=== PATIENT | female | born 1940 | race Caucasian/White ===

== ENCOUNTER 2016-12-21 19:56 | Emergency (ER) | payer MEDICARE, MEDICAID ==
[~2016-12-21] VITALS: Ht 167.6 cm; Wt 50.0 kg
[~2016-12-21 19:56] MED LIST: CYMB60CA PO; TRAZ100T50 PO
[2016-12-21 20:00] VITALS: BP 93/51; PULSE 73; RESP 20; TEMP 97.4; O2SAT 94
[2016-12-21] MEDS ORDERED: SODIUM CHLOR 0.9% 1000 ML INJ 1,000 ML IV SCH (20:02)
[2016-12-21 20:05] VITALS: O2SAT 97
--- NOTE | 2016-12-21 20:05 | PD ---
HPI Chief Complaint: Complaint Time Seen by Provider: 20:01 Travel History International Travel<30 days: No Contact w/Intl Traveler<30days: No Traveled to known affect area: No History of Present Illness HPI Patient is 76 years old and arrives from assisted living facility. There she rolled cheese sandwich which is very greasy. Shortly thereafter she developed diarrhea. A total of 10 episodes of nonbloody diarrhea observed. Nausea occurred however she did not vomit. She did have abdominal pain initially however none since resolved. Evidently she received an antidiarrheal medication on scene. She's had no fever. PFSH Past Medical History Arthritis: Yes Asthma: No Depression: Yes (Per pt.) Heart Rhythm Problems: No Cardiovascular Problems: Yes (Hx Periocarditis per pt.) Chest Pain: No Congestive Heart Failure: No COPD: Yes (Per pt.) Cerebrovascular Accident: Yes (Age 66 Per pt.) Diminished Hearing: No GERD: No Genitourinary: No Hiatal Hernia: No Musculoskeletal: Yes (Osteoperosis, RECENT RT HUMERUS FX) Neurologic: Yes (LEFT SIDE IS WEAKER DUE TO STROKE) Psychiatric: Yes Reproductive: No Respiratory: Yes Seizures: Yes (years ago) Sleep Apnea: No Ulcer: No ?: Not Menopausal: Yes : 3 Para: 3 Miscarriage: 0 : 0 Dilation and Curettage (D&C): Yes (20 yrs ago per pt) Past Surgical History Abdominal Surgery: Yes (APPENDECTOMY) Appendectomy: Yes Other Surgery: Yes (APPENDECTOMY) Social History Alcohol Use: Yes (2-3 days week (2-3 beers when she does)) Tobacco Use: Yes (Since age 35 - 12 cigs daily. ) Substance Use: No Allergies-Medications (Allergen,Severity, Reaction): Coded Allergies: Arava (Verified Allergy, Severe, FACE SWELLING, 12/21/16) Aspirin (Verified Allergy, Severe, FACE SWELLING, 12/21/16) Cipro (Verified Allergy, Unknown, 12/21/16) Penicillin (Verified Allergy, Unknown, 12/21/16) Per [facility] (Pharmacist) Quinolones (Verified Allergy, Unknown, 12/21/16) Per [facility] (Pharmacist) Reported Meds & Prescriptions Reported Meds & Active Scripts Active Lomotil (Diphenoxylate-Atropine) 2.5-0.025 Mg Tab 1 Tab PO Q6H PRN Reported Symbicort Inh (Budesonide/Formoterol Fumarate) 160-4.5 Mcg/Act Aero 2 Puff INH Q12HR Spiriva Handihaler (Tiotropium Inh) 18 Mcg Cap 18 Mcg INH DAILY 1 capsule = 18 mcg Tums (Calcium Carbonate (Antacid)) 500 Mg Chew 500 Mg CHEW PRN Simvastatin 20 Mg Tab 20 Mg PO DAILY Sertraline (Sertraline HCl) 100 Mg Tab 100 Mg PO DAILY Robafen (Guaifenesin) 100 Mg/5 Ml Syp 10 Ml PO Q4HR PRN Prednisone 5 Mg Tab 5 Mg PO DAILY Omeprazole 20 Mg Tab 20 Mg PO DAILY Meclizine (Meclizine HCl) 25 Mg Tab 25 Mg PO TID PRN Hydrocodone-Acetaminophen 7.5-325 mg Tab 1 Tab PO Q8HR PRN Mapap (Acetaminophen) 325 Mg Tab 325 Mg PO Q4-6H PRN Lisinopril 20 Mg Tab 20 Mg PO DAILY Allergy Nasal [place] 24 Ho (Fluticasone Propionate (Nasal)) 50 Mcg/Act Spr [address] Tab [address]AL HS Duloxetine DR (Duloxetine HCl) 60 Mg Capdr 60 Mg PO DAILY Cetirizine (Cetirizine HCl) 10 Mg Tab 10 Mg PO DAILY Bupropion HCl 75 Mg Tab 75 Mg PO BID Biofreeze Roll-On (Menthol (Topical Analgesic)) 4 % Gel 1 Applic TOPICAL DAILY PRN Alprazolam 0.25 Mg Tab 0.25 Mg PO Q8H PRN Alprazolam 0.25 Mg Tab 0.25 Mg PO HS Alprazolam 0.5 Mg Tab 0.5 Mg PO Q8H PRN Docusate Sodium 100 Mg Cap 100 Mg PO DAILY Aspirin 325 Mg Tab 325 Mg PO DAILY Review of Systems Except as stated in HPI: all other systems reviewed are Neg General / Constitutional: No: Fever Gastrointestinal: Positive: Nausea, Diarrhea, Abdominal Pain, No: Vomiting Physical Exam Narrative GENERAL: 76 yo F, WNWD, mild distress 2/2 anxiety and/or pain SKIN: Warm and dry. HEAD: Atraumatic. Normocephalic. EYES: Pupils equal and round. No scleral icterus. No injection or drainage. ENT: No nasal bleeding or discharge. Mucous membranes pink and moist. NECK: Trachea midline. No JVD. CARDIOVASCULAR: Regular rate and rhythm. RESPIRATORY: No accessory muscle use. Clear to auscultation. Breath sounds equal bilaterally. GASTROINTESTINAL: Minimal TTP LLQ. Soft. No tenderness at McBurney's point. Negative Patterson's sign. MUSCULOSKELETAL: Extremities without clubbing, cyanosis, or edema. No obvious deformities. NEUROLOGICAL: Awake and alert. No obvious cranial nerve deficits. Motor grossly within normal limits. Five out of 5 muscle strength in the arms and legs. Normal speech. PSYCHIATRIC: Appropriate mood and affect; insight and judgment normal. Data Data Last Documented VS Vital Signs Date Time Temp Pulse Resp B/P Pulse Ox O2 Delivery O2 Flow Rate FiO2 12/21/16 20:06 74 19 12/21/16 20:05 97 Room Air 12/21/16 20:00 97.4 93/51 Orders Complete Blood Count With Diff (12/21/16 20:02) Comprehensive Metabolic Panel (12/21/16 20:02) Lipase (12/21/16 20:02) Lactic Acid (12/21/16 20:02) Ct Abd/Pel W/O Iv Contrast (12/21/16 20:02) Iv Access Insert/Monitor (12/21/16 20:02) Ecg Monitoring (12/21/16 20:02) Oximetry (12/21/16 20:02) Ondansetron Inj (Zofran Inj) (12/21/16 20:15) Sodium Chlor 0.9% 1000 Ml Inj (Ns 1000 M (12/21/16 20:02) Sodium Chloride 0.9% Flush (Ns Flush) (12/21/16 20:15) Urinalysis - C+S If Indicated (12/21/16 20:05) ^ Straight Catheter (12/21/16 20:56) Labs Laboratory Tests Test 12/21/16 12/21/16 20:12 21:00 White Blood Count 10.2 TH/MM3 Red Blood Count 4.86 MIL/MM3 Hemoglobin 14.5 GM/DL Hematocrit 43.1 % Mean Corpuscular Volume 88.7 FL Mean Corpuscular Hemoglobin 29.7 PG Mean Corpuscular Hemoglobin 33.5 % Concent Red Cell Distribution Width 15.3 % Platelet Count 267 TH/MM3 Mean Platelet Volume 7.4 FL Neutrophils (%) (Auto) 72.4 % Lymphocytes (%) (Auto) 19.2 % Monocytes (%) (Auto) 6.6 % Eosinophils (%) (Auto) 0.8 % Basophils (%) (Auto) 1.0 % Neutrophils # (Auto) 7.3 TH/MM3 Lymphocytes # (Auto) 2.0 TH/MM3 Monocytes # (Auto) 0.7 TH/MM3 Eosinophils # (Auto) 0.1 TH/MM3 Basophils # (Auto) 0.1 TH/MM3 CBC Comment DIFF FINAL Differential Comment Sodium Level 134 MEQ/L Potassium Level 4.0 MEQ/L Chloride Level 100 MEQ/L Carbon Dioxide Level 26.3 MEQ/L Anion Gap 8 MEQ/L Blood Urea Nitrogen 19 MG/DL Creatinine 1.02 MG/DL Estimat Glomerular Filtration 53 ML/MIN Rate Random Glucose 109 MG/DL Lactic Acid Level 1.7 mmol/L Calcium Level 8.9 MG/DL Total Bilirubin 0.6 MG/DL Aspartate Amino Transf 26 U/L (AST/SGOT) Alanine Aminotransferase 20 U/L (ALT/SGPT) Alkaline Phosphatase 84 U/L Total Protein 7.0 GM/DL Albumin 3.6 GM/DL Lipase 109 U/L Urine Color YELLOW Urine Turbidity CLEAR Urine pH 7.0 Urine Specific Arjay 1.018 Urine Protein NEG mg/dL Urine Glucose (UA) NEG mg/dL Urine Ketones NEG mg/dL Urine Occult Blood NEG Urine Nitrite NEG Urine Bilirubin NEG Urine Urobilinogen 2.0 MG/DL Urine Leukocyte Esterase NEG Urine WBC LESS THAN 1 /hpf Urine Hyaline Casts 12 /lpf Microscopic Urinalysis Comment CULT NOT INDICATED MDM Medical Decision Making Medical Screen Exam Complete: Yes Emergency Medical Condition: Yes Medical Record Reviewed: Yes Differential Diagnosis Constipation, Gastritis, Acute Cholecystitis, Biliary Colic, Pancreatitis, BECERRIL , Hepatitis, Bowel Obstruction, Cystitis, Mesenteric Ischemia, AAA, Appendicitis , Renal Stone/Hydronephrosis, GERD, perforated viscous Narrative Course CBC & BMP Diagram 12/21/16 20:12 LA 1.7 LFTs normal Lipase normal UA no UTI Last 24 hours Impressions Abdomen/Pelvis CT 12/21/162001 Signed Impressions: Service Date/Time: Wednesday, December 21, 2016 20:24 - CONCLUSION: 1. Abnormal bowel gas pattern with multiple loops of borderline dilated air-containing small bowel with multiple air-fluid levels. Gas and stool are noted segmentally in the colon with air-fluid levels as well. No oral contrast was given limiting the sensitivity. Differential diagnosis includes an ileus. A bowel obstruction is less likely. 2. No free air or drainable fluid. João Calderon MD Pt has had multiple BMs prior to arrival. Patient has had bowel movements during ER stay. At this time, bowel obstruction is considered very unlikely. Diagnosis Primary Impression: Diarrhea Qualified Code: R19.7 - Diarrhea, unspecified type Referrals: DR PEREZ 2 days Additional Instructions: You have a choice when it comes to health care, and we are glad that you chose [facility]. Hopefully, we have met your expectations on today's visit. You are welcome to return to [facility] at any time, as we are committed to meeting the health care needs of our community. Med/Other Pt SpecificInfo: Prescription(s) given Scripts Diphenoxylate-Atropine (Lomotil)2.5-0.025 Mg Tab1 Tab PO Q6H PRN (DIARRHEA) #10 TAB Ref 0 Prov:Royer Rivera MD 12/21/16 Disposition: 01 DISCHARGE HOME Condition: Stable Royer Rivera MD Dec 21, 2016 20:05 Royer Rivera MD Dec 21, 2016 20:05
[2016-12-21] MEDS ORDERED: SODIUM CHLORIDE 0.9% FLUSH 5 ML FLUSH IVF PRN (20:15)
[2016-12-21] MEDS ORDERED: ONDANSETRON HCL 4 MG/2 ML VIAL IVP ONE (20:15)
[2016-12-21 20:33] LABS: AUTOMATED NEUTROPHIL # 7.3 TH/MM3 (1.8-7.7); BASOPHIL # 0.1 TH/MM3 (0-0.2); EOSINOPHIL # 0.1 TH/MM3 (0-0.4); EOSINOPHIL % 0.8 % (0.0-4.0); HEMATOCRIT 43.1 % (35.0-46.0); HEMO FLAGS DIFF FINAL; LYMPH % 19.2 % (9.0-44.0); MEAN CELL VOLUME 88.7 FL (80.0-100.0); MEAN CORPUSCULAR HEMOGLOBIN 29.7 PG (27.0-34.0); MEAN CORPUSCULAR HGB CONC 33.5 % (32.0-36.0); MONO % 6.6 % (0.0-8.0); NEUT % 72.4 % (16.0-70.0); PLATELET COUNT 267 TH/MM3 (150-450); RED BLOOD COUNT 4.86 MIL/MM3 (4.00-5.30); RED CELL DISTRIBUTION WIDTH 15.3 % (11.6-17.2); WHITE BLOOD COUNT 10.2 TH/MM3 (4.0-11.0)
--- NOTE | 2016-12-21 20:50 | RADRPT ---
EXAM DATE/TIME: 12/21/2016 20:24 [facility] COMPARISON: No previous studies available for comparison. INDICATIONS : Nausea, vomiting and diarrhea X 4 hours. ORAL CONTRAST: No oral contrast ingested. RADIATION DOSE: 9.96 CTDIvol (mGy) MEDICAL HISTORY : Chronic obstructive pulmonary disease. Cerebrovascular disease. Hypertension. SURGICAL HISTORY : Appendectomy. ENCOUNTER: Initial ACUITY: 1 day PAIN SCALE: 6/10 LOCATION: abdomen TECHNIQUE: Volumetric scanning of the abdomen and pelvis was performed. Using automated exposure control and ad justment of the mA and/or kV according to patient size, radiation dose was kept as low as reasonably achievable to obtain optimal diagnostic quality images. FINDINGS: LOWER LUNGS: The visualized lower lungs are clear. LIVER: Homogeneous density with a small cyst in the left lobe of the liver. The gallbladder appears unremark able. There is no dilation of the biliary tree. No calcified gallstones. SPLEEN: Normal size without lesion. PANCREAS: Within normal limits. KIDNEYS: Normal in size and shape. There is no mass, stone, or hydronephrosis. ADRENAL GLANDS: Within normal limits. VASCULAR: There is no aortic aneurysm. BOWEL/MESENTERY: There are multiple loops of borderline air-containing small bowel with multiple air-fluid levels. The re is fluid and air fluid levels in the colon as well. There is no free air or definite fluid collect ion. ABDOMINAL WALL: Within normal limits. RETROPERITONEUM: There is no lymphadenopathy. BLADDER: No wall thickening or mass. REPRODUCTIVE: Within normal limits. INGUINAL: There is no lymphadenopathy or hernia. MUSCULOSKELETAL: Within normal limits for patient age. CONCLUSION: 1. Abnormal bowel gas pattern with multiple loops of borderline dilated air-containing small bowel wi th multiple air-fluid levels. Gas and stool are noted segmentally in the colon with air-fluid levels as well. No oral contrast was given limiting the sensitivity. Differential diagnosis includes an ileu s. A bowel obstruction is less likely. 2. No free air or drainable fluid. João Calderon MD on December 21, 2016 at 20:46 Board Certified Radiologist. This report was verified electronically.
[2016-12-21 21:03] LABS: ALKALINE PHOSPHATASE 84 U/L (45-117); ALT (GPT) 20 U/L (10-53); ANION GAP 8 MEQ/L (5-15); AST (GOT) 26 U/L (15-37); BICARBONATE 26.3 MEQ/L (21.0-32.0); BLOOD UREA NITROGEN 19 MG/DL (7-18); CHLORIDE 100 MEQ/L (98-107); GLOMERULAR FILTRATION RATE 53 ML/MIN (>89); SODIUM (NA) 134 MEQ/L (136-145); TOTAL BILIRUBIN ADULT 0.6 MG/DL (0.2-1.0)
[2016-12-21] MEDS ORDERED: ALPR0.5T3 PO (21:19)
[2016-12-21] MEDS ORDERED: ROBA100S5 PO (21:19)
[2016-12-21] MEDS ORDERED: DOCU100C PO (21:19)
[2016-12-21] MEDS ORDERED: PRED5TAB PO (21:19)
[2016-12-21] MEDS ORDERED: ASPI325T PO (21:19)
[2016-12-21] MEDS ORDERED: MECL-62 PO (21:19)
[2016-12-21] MEDS ORDERED: MENT4GEL TOPICAL (21:19)
[2016-12-21] MEDS ORDERED: FLUT1SPR22 NASAL (21:19)
[2016-12-21] MEDS ORDERED: LISI-515 PO (21:19)
[2016-12-21] MEDS ORDERED: ALPR0.25 PO ×2 (21:19)
[2016-12-21] MEDS ORDERED: OMEP20TA PO (21:19)
[2016-12-21] MEDS ORDERED: DULO1CAP3 PO (21:19)
[2016-12-21] MEDS ORDERED: MAPA325T PO (21:19)
[2016-12-21] MEDS ORDERED: HYDR-3580 PO ×2 (21:19)
[2016-12-21] MEDS ORDERED: BUPR75TA PO (21:19)
[2016-12-21] MEDS ORDERED: CETI10 PO (21:19)
[2016-12-21] MEDS ORDERED: SERT-129 PO (21:21)
[2016-12-21] MEDS ORDERED: SPIRCAP INH (21:21)
[2016-12-21] MEDS ORDERED: SIMV20TA PO (21:21)
[2016-12-21] MEDS ORDERED: TUMS500C CHEW (21:21)
[2016-12-21] MEDS ORDERED: SYMB160A INH (21:22)
[2016-12-21 21:54] LABS: BLOOD, URINE NEG (NEG); COMMENT (UR) CULT NOT INDICATED; CULTURE IF INDICATED CULT NOT INDICATED; GLUCOSE,URINE NEG (NEG); HYALINE CAST, URINE 12 /lpf (RARE); KETONE, URINE NEG (NEG); NITRITE,URINE NEG (NEG); URINE COLOR YELLOW (YELLW/STRAW)
[2016-12-21] MEDS ORDERED: LOMO2.5T PO (22:13)
[2016-12-22 04:09] VITALS: BP 106/60; PULSE 76; RESP 16; O2SAT 96
== END 2016-12-22 09:43 | disposition home or self-care (01) ==
LOC: NEPC 19:56 → NEPA 12-22 09:43
DX: R19.7 Diarrhea, unspecified (principal); R10.9 Unspecified abdominal pain; F17.210 Nicotine dependence, cigarettes, uncomplicated
CPT/HCPCS: 74176; 80053; 81001; 83605; 83690; 85025; 96361; 96374; 99284; J2405; J7030; P9612

== ENCOUNTER 2017-05-16 11:56 | Inpatient (IN) | payer MEDICARE, OTHER ==
[~2017-05-16] VITALS: Ht 170.2 cm; Wt 52.3 kg
[~2017-05-16 11:56] MED LIST changes: +ALPR0.25 PO; +ALPR0.5T3 PO; +ASPI325T PO; +BUPR75TA PO; +CETI10 PO; -CYMB60CA PO; +DOCU100C PO; +DULO1CAP3 PO; +FLUT1SPR22 NASAL; +HYDR-3580 PO; +LISI-515 PO; +LOMO2.5T PO; +MAPA325T PO; +MECL-62 PO; +MENT4GEL TOPICAL; +OMEP20TA PO; +PRED5TAB PO; +ROBA100S5 PO; +SERT-129 PO; +SIMV20TA PO; +SPIRCAP INH; +SYMB160A INH; -TRAZ100T50 PO; +TUMS500C CHEW
[2017-05-16 12:03] VITALS: PULSE 80; RESP 20; TEMP 98.6; O2SAT 99
[2017-05-16 13:01] VITALS: BP 148/75; PULSE 74; RESP 18; TEMP 98.7; O2SAT 95
[2017-05-16 13:14] LABS: AUTOMATED NEUTROPHIL # 7.7 TH/MM3 (1.8-7.7); BASOPHIL % 0.4 % (0.0-2.0); EOSINOPHIL % 0.4 % (0.0-4.0); HEMO FLAGS DIFF FINAL; LYMPH % 9.2 % (9.0-44.0); LYMPHOCYTE # 0.8 TH/MM3 (1.0-4.8); MEAN CORPUSCULAR HEMOGLOBIN 28.2 PG (27.0-34.0); MEAN CORPUSCULAR HGB CONC 32.4 % (32.0-36.0); MONO % 4.2 % (0.0-8.0); NEUT % 85.8 % (16.0-70.0); PLATELET COUNT 240 TH/MM3 (150-450); RED BLOOD COUNT 4.83 MIL/MM3 (4.00-5.30); RED CELL DISTRIBUTION WIDTH 15.6 % (11.6-17.2)
[2017-05-16] MEDS ORDERED: DONE5TAB7 PO (13:18)
[2017-05-16] MEDS ORDERED: PRED1SUS RIGHT EYE (13:18)
[2017-05-16] MEDS ORDERED: ESCI20TA PO (13:18)
[2017-05-16] MEDS ORDERED: FLUT50SP EACH NARE (13:18)
[2017-05-16 13:36] LABS: ANION GAP 8 MEQ/L (5-15); AST (GOT) 10 U/L (15-37); BICARBONATE 25.9 MEQ/L (21.0-32.0); BLOOD UREA NITROGEN 11 MG/DL (7-18); CHLORIDE 96 MEQ/L (98-107); GLOMERULAR FILTRATION RATE 89 ML/MIN (>89); POTASSIUM 4.9 MEQ/L (3.5-5.1); SODIUM (NA) 130 MEQ/L (136-145)
[2017-05-16 13:37] LABS: ALT (GPT) 13 U/L (10-53)
[2017-05-16 13:39] LABS: ALKALINE PHOSPHATASE 71 U/L (45-117); TOTAL BILIRUBIN ADULT 0.5 MG/DL (0.2-1.0)
[2017-05-16] MEDS ORDERED: SODIUM CHLOR 0.9% 1000 ML INJ 1,000 ML IV SCH (13:45)
--- NOTE | 2017-05-16 14:09 | PD ---
HPI Chief Complaint: Psychiatric Symptoms Time Seen by Provider: 12:33 Travel History International Travel<30 days: No Contact w/Intl Traveler<30days: No Traveled to known affect area: No History of Present Illness HPI This is a 77-year-old female who has a history of depression who lives in assisted living and has been having increasing thoughts of hurting herself recently. She's been very depressed ever since she got eye surgery. She says she likes to read and she hasn't been able to read lately. She has been tired, has had no energy and has little interest in things. Her symptoms of been constant and severe. She has a long history of depression ever since she was a child and she's tried to harm herself many times. PFSH Past Medical History Anemia: Yes Arthritis: Yes Asthma: No Anxiety: Yes Depression: Yes Heart Rhythm Problems: No Cardiovascular Problems: Yes (Hx Periocarditis per pt.) Chest Pain: No Congestive Heart Failure: No COPD: Yes Cerebrovascular Accident: Yes Diabetes: No Diminished Hearing: No GERD: Yes Genitourinary: No Hiatal Hernia: No Hypertension: Yes (occ) Musculoskeletal: Yes (Osteoperosis, RECENT RT HUMERUS FX) Neurologic: Yes (LEFT SIDE IS WEAKER DUE TO STROKE) Psychiatric: Yes Reproductive: No Respiratory: Yes Seizures: Yes (years ago) Sleep Apnea: No Ulcer: No Tetanus Vaccination: > 5 Years Influenza Vaccination: Yes ?: Not Menopausal: Yes : 3 Para: 3 Miscarriage: 0 : 0 Dilation and Curettage (D&C): Yes (20 yrs ago per pt) Past Surgical History Abdominal Surgery: Yes (APPENDECTOMY) Appendectomy: Yes Other Surgery: Yes (APPENDECTOMY) Social History Alcohol Use: No Tobacco Use: Yes Substance Use: No Allergies-Medications (Allergen,Severity, Reaction): Coded Allergies: Arava (Verified Allergy, Severe, FACE SWELLING, 05/16/17) Aspirin (Verified Allergy, Severe, FACE SWELLING, 05/16/17) Cipro (Verified Allergy, Unknown, 05/16/17) Penicillin (Verified Allergy, Unknown, 05/16/17) Per [facility] (Pharmacist) Quinolones (Verified Allergy, Unknown, 05/16/17) Per [facility] (Pharmacist) Reported Meds & Prescriptions Reported Meds & Active Scripts Active Lomotil (Diphenoxylate-Atropine) 2.5-0.025 Mg Tab 1 Tab PO Q6H PRN Reported Pred Forte Opth 1% (Prednisolone Acetate Opth 1%) 1% Susp 1 Drop RIGHT EYE TID Fluticasone Nasal [place] 50 Mcg/Act Naspr 50 Mcg EACH NARE BID 50 mcg/spray Escitalopram (Escitalopram Oxalate) 20 Mg Tab 20 Mg PO DAILY Donepezil 5 Mg Tab 5 Mg PO DAILY Symbicort Inh (Budesonide/Formoterol Fumarate) 160-4.5 Mcg/Act Aero 2 Puff INH Q12HR Spiriva Handihaler (Tiotropium Inh) 18 Mcg Cap 18 Mcg INH DAILY 1 capsule = 18 mcg Tums (Calcium Carbonate (Antacid)) 500 Mg Chew 500 Mg CHEW PRN Simvastatin 20 Mg Tab 20 Mg PO DAILY Prednisone 5 Mg Tab 5 Mg PO DAILY Omeprazole 20 Mg Tab 20 Mg PO DAILY Meclizine (Meclizine HCl) 25 Mg Tab 25 Mg PO TID PRN Hydrocodone-Acetaminophen 7.5-325 mg Tab 1 Tab PO Q8HR PRN Mapap (Acetaminophen) 325 Mg Tab 325 Mg PO Q4-6H PRN Lisinopril 20 Mg Tab 20 Mg PO DAILY Duloxetine DR (Duloxetine HCl) 60 Mg Capdr 60 Mg PO DAILY Cetirizine (Cetirizine HCl) 10 Mg Tab 10 Mg PO DAILY Alprazolam 0.25 Mg Tab 0.25 Mg PO Q8H PRN Alprazolam 0.5 Mg Tab 0.5 Mg PO Q8H PRN Docusate Sodium 100 Mg Cap 100 Mg PO DAILY Aspirin 325 Mg Tab 325 Mg PO DAILY Review of Systems Except as stated in HPI: all other systems reviewed are Neg Physical Exam Narrative GENERAL:Well appearing, no acute distress SKIN: Focused skin assessment warm and dry. HEAD: Atraumatic. Normocephalic. EYES: Pupils equal and round. No injection or drainage. ENT: Moist mucous membranes NECK: Trachea midline. CARDIOVASCULAR: Regular rate and rhythm. No murmur appreciated. RESPIRATORY: Clear to auscultation. Breath sounds equal bilaterally. GASTROINTESTINAL: Abdomen soft, non-tender, nondistended. MUSCULOSKELETAL: No obvious deformities. NEUROLOGICAL: Awake and alert. No obvious cranial nerve deficits. Moving all extremities. PSYCHIATRIC: Slow to answer questions, poor eye contact, depressed mood, flat affect Data Data Last Documented VS Vital Signs Date Time Temp Pulse Resp B/P Pulse Ox O2 Delivery O2 Flow Rate FiO2 05/16/17 13:01 98.7 74 18 148/75 95 Room Air Orders Complete Blood Count With Diff (05/16/17 12:41) Comprehensive Metabolic Panel (05/16/17 12:41) ^ Insert Iv (05/16/17 12:41) Psych Screen (05/16/17 12:41) Drug Screen, Random Urine (05/16/17 12:41) Alcohol (Ethanol) (05/16/17 12:41) Urinalysis - C+S If Indicated (05/16/17 12:50) Sodium Chlor 0.9% 1000 Ml Inj (Ns 1000 M (05/16/17 13:45) Diet Heart Healthy (05/16/17 Dinner) Labs Laboratory Tests Test 05/16/17 12:55 White Blood Count 9.0 TH/MM3 Red Blood Count 4.83 MIL/MM3 Hemoglobin 13.6 GM/DL Hematocrit 42.0 % Mean Corpuscular Volume 87.0 FL Mean Corpuscular Hemoglobin 28.2 PG Mean Corpuscular Hemoglobin 32.4 % Concent Red Cell Distribution Width 15.6 % Platelet Count 240 TH/MM3 Mean Platelet Volume 6.9 FL Neutrophils (%) (Auto) 85.8 % Lymphocytes (%) (Auto) 9.2 % Monocytes (%) (Auto) 4.2 % Eosinophils (%) (Auto) 0.4 % Basophils (%) (Auto) 0.4 % Neutrophils # (Auto) 7.7 TH/MM3 Lymphocytes # (Auto) 0.8 TH/MM3 Monocytes # (Auto) 0.4 TH/MM3 Eosinophils # (Auto) 0.0 TH/MM3 Basophils # (Auto) 0.0 TH/MM3 CBC Comment DIFF FINAL Differential Comment Sodium Level 130 MEQ/L Potassium Level 4.9 MEQ/L Chloride Level 96 MEQ/L Carbon Dioxide Level 25.9 MEQ/L Anion Gap 8 MEQ/L Blood Urea Nitrogen 11 MG/DL Creatinine 0.65 MG/DL Estimat Glomerular Filtration 89 ML/MIN Rate Random Glucose 105 MG/DL Calcium Level 9.2 MG/DL Total Bilirubin 0.5 MG/DL Aspartate Amino Transf 10 U/L (AST/SGOT) Alanine Aminotransferase 13 U/L (ALT/SGPT) Alkaline Phosphatase 71 U/L Total Protein 6.9 GM/DL Albumin 3.7 GM/DL Ethyl Alcohol Level 3 MG/DL MDM Medical Decision Making Medical Screen Exam Complete: Yes Emergency Medical Condition: Yes Interpretation(s) Mild hyponatremia Differential Diagnosis Depression, adjustment reaction, psychosis Narrative Course This is a 77-year-old female who presents to the emergency department with depression. She has a long-standing history of depression. On exam she appears her depressed with poor eye contact, flat affect and she slowed answer questions. I think she'll likely require psychiatric admission. She was mildly hyponatremic on labs. She'll be given a liter of fluid. I think she is medically cleared for psychiatric admission. Enedina Hannon MD May 16, 2017 14:09
[2017-05-16] MEDS ORDERED: ALPRAZolam 0.5 MG TAB PO PRN (14:15)
[2017-05-16] MEDS ORDERED: ACETAMINOPHEN 325 MG TAB PO PRN (14:15)
[2017-05-16] MEDS ORDERED: LORazepam 2 MG/ML VIAL IM PRN ×2 (14:15)
[2017-05-16] MEDS ORDERED: MAGNESIUM HYDROXIDE SUSP 30 ML CUP PO PRN (14:15)
[2017-05-16] MEDS ORDERED: ALUMINUM/MAGNESIUM/SIMETH 30 ML CUP PO PRN (14:15)
[2017-05-16] MEDS ORDERED: LORazepam 1 MG TAB PO PRN (14:15)
[2017-05-16] MEDS ORDERED: LORazepam 0.5 MG TAB PO PRN (14:15)
[2017-05-16 14:28] LABS: BLOOD, URINE NEG (NEG); COMMENT (UR) CULT NOT INDICATED; CULTURE IF INDICATED CULT NOT INDICATED; GLUCOSE,URINE NEG (NEG); KETONE, URINE NEG (NEG); MUCUS URINE FEW /lpf (OCC); NITRITE,URINE NEG (NEG); PH, URINE 6.5 (5.0-8.5); SQUAMOUS EPITHELIAL CELL URINE <1 /hpf (0-5); URINE COLOR YELLOW (YELLW/STRAW)
[2017-05-16 14:31] LABS: AMPHETAMINE, URINE NEG (NEG); BARBITURATES, URINE NEG (NEG); COCAINE, URINE NEG (NEG)
--- NOTE | 2017-05-16 14:50 | HHI.HP ---
Provisional Diagnosis Admission Date May 16, 2017 at 14:10 [place] I. Major depressive episode, recurrent, severe Certification of Person's Competence To Provide Express and Informed Consent I have personally examined Natividad Duron , a person being served at [facility] on, May 16, 2017 14:41. Express and informed consent means consent voluntarily given in writing, by a competent person, after sufficient explanation and disclosure of the subject matter involved to enable the person to make a knowing and willful decision without any element of force, fraud, deceit, duress, or other form of constraint or coercion. This person is 18 years of age or older, is not now known to be incompetent to consent to treatment with a guardian advocate, and does not have a health care surrogate or proxy currently making medical treatment decisions. I have found this person to be one of the following: [X] Competent to provide express and informed consent, as defined above, for voluntary admission to this facility and is competent to provide express and informed consent for treatment. He/she has the consistent capacity to make well reasoned, willful, and knowing decisions concerning his or her medical or mental health treatment. The person fully and consistently understands the purpose of the admission for examination/placement and is fully capable of personally exercising all rights assured under [place] [] Incompetent to provide express and informed consent to voluntary admission, and this is incompetent to provide express and informed consent to treatment. The person must be transferred to involuntary status and a petition for a guardian advocate filed with the Circuit Court. [] Refusing to provide express and informed consent to voluntary admission but is competent to provide express and informed consent for treatment. The person must be discharged or transferred to involuntary status. Form shall be completed within 24 hours of a person's arrival at the receiving facility and filed in the clinical record of each person: 1. Admitted on a voluntary basis 2. Permitted to provide express and informed consent to his/her own treatment 3. Allowed to transfer from involuntary to voluntary status 4. Prior to permitting a person to consent to his or her own treatment after having been previously found incompetent to consent to treatment. History of Present Illness Capacity: Has Capacity HPI 77-year-old female Fu acted from assisted living facility for suicidal ideation. Patient interviewed and this physician spoke to the patient's nurse regarding her presentation. Records were reviewed as well. She has a long history of depressive episodes stemming from childhood. At this time she is markedly depressed with frequent if not constant thoughts of and suicide. She also demonstrates depressed mood, anhedonia, feelings of hopelessness and helplessness, decreased energy, impaired concentration, insomnia, anxiety, and low self-esteem. The only recent stressor she can explain to this physician is the eye surgery she had recently, which impairs her ability to read. Apparently she enjoyed reading and being unable to do so is more depressing to her. Finally, there is some possibility the patient has either early-onset dementia or pseudodementia. She is telling this physician that she has not been sad since yesterday but the patient's nurse checked the [facility]URSING HOME reports and finds that hard to believe. The patient does not use alcohol or drugs. She does have Physical medical problems. Review of Systems Except as stated in HPI: all other systems reviewed are Neg Past Psych History Psychological trauma history Patient states she has been depressed on and off since childhood. She is unable to list a psychological trauma. Violence risk - others (6 mos) Minimal Violence risk - self (6 mos) High. Apparently the patient has a history of previous suicide attempts. Substance Abuse History Drugs/Alcohol past 12 months Denied Past Family Social History Coded Allergies: Arava (Verified Allergy, Severe, FACE SWELLING, 05/16/17) Aspirin (Verified Allergy, Severe, FACE SWELLING, 05/16/17) Cipro (Verified Allergy, Unknown, 05/16/17) Penicillin (Verified Allergy, Unknown, 05/16/17) Per [facility] [place] (Pharmacist) Quinolones (Verified Allergy, Unknown, 05/16/17) Per [facility] [place] (Pharmacist) Active Scripts Diphenoxylate-Atropine (Lomotil)2.5-0.025 Mg Tab1 Tab PO Q6H PRN (DIARRHEA) #10 TAB Ref 0 Prov:Royer Rivera MD 12/21/16 Reported Medications Prednisolone Acetate Opth 1% (Pred Forte Opth 1%)1% Susp1 Drop RIGHT EYE TID # 1 BOTTLE Ref 0 05/16/17 Fluticasone Nasal Casey 50 Mcg/Act Naspr50 Mcg EACH NARE BID #1 BOTTLE Ref 0 50 mcg/spray 05/16/17 Escitalopram 20 Mg Tab20 Mg PO DAILY #30 TAB Ref 0 05/16/17 Donepezil 5 Mg Tab5 Mg PO DAILY #30 TAB Ref 0 05/16/17 Budesonide-Formoterol Inh (Symbicort Inh)160-4.5 Mcg/Act Aero2 Puff INH Q12HR # 1 INHALER Ref 0 12/21/16 Tiotropium Inh (Spiriva Handihaler)18 Mcg Cap18 Mcg INH DAILY #30 CAP Ref 0 1 capsule = 18 mcg 12/21/16 Calcium Carbonate (Antacid) (Tums)500 Mg [id number] Mg CHEW PRN (HEARTBURN) Ref 0 12/21/16 Simvastatin 20 Mg Tab20 Mg PO DAILY #30 TAB Ref 0 12/21/16 Prednisone 5 Mg Tab5 Mg PO DAILY Ref 0 12/21/16 Omeprazole 20 Mg Tab20 Mg PO DAILY #30 TAB Ref 0 12/21/16 Meclizine 25 Mg Tab25 Mg PO TID PRN (VERTIGO) Ref 0 12/21/16 Hydrocodone-Acetaminophen 7.5-325 mg Tab1 Tab PO Q8HR PRN (PAIN) #30 TAB Ref 0 12/21/16 Acetaminophen (Mapap)325 Mg [id number] Mg PO Q4-6H PRN (PAIN SCALE 1 TO 10) Ref 0 12/21/16 Lisinopril 20 Mg Tab20 Mg PO DAILY #30 TAB Ref 0 12/21/[address] 60 Mg Capdr60 Mg PO DAILY #30 CAP Ref 0 12/21/16 Cetirizine 10 Mg Tab10 Mg PO DAILY Ref 0 12/21/16 Alprazolam 0.25 Mg Tab0.25 Mg PO Q8H PRN (ANXIETY) Ref 0 12/21/16 Alprazolam 0.5 Mg Tab0.5 Mg PO Q8H PRN (ANXIETY) Ref 0 12/21/16 Docusate Sodium 100 Mg Wso754 Mg PO DAILY #60 CAP Ref 0 12/21/16 Aspirin 325 Mg Rrg471 Mg PO DAILY #30 TAB Ref 0 12/21/16 Discontinued Reported Medications Sertraline 100 Mg Nyt386 Mg PO DAILY #30 TAB Ref 0 12/21/16 Guaifenesin (Robafen)100 Mg/5 Ml Syp10 Ml PO Q4HR PRN (COUGH) 12/21/16 Bupropion HCl 75 Mg Tab75 Mg PO BID Ref 0 12/21/16 Alprazolam 0.25 Mg Tab0.25 Mg PO HS Ref 0 12/21/16 Current Medications Medications (Trade) Dose Ordered Sig/Adrienne Route Start Time Stop Time Status Last Admin (NS 1000 ml Inj) 1,000 ml @ 999 mls/hr Q1H1M IV 05/16/17 13:45 05/16/17 14:45 05/16/17 14:09 Family History Positive for mood disorder and anxiety disorders. Social History Patient is retired. She currently resides in an adult living facility. She denies a history of alcohol or drug abuse. She states she has very limited family support. Patient's Strengths (min. 2) Resilient and has access to healthcare. Physical Exam GENERAL: SKIN: Warm and dry. HEAD: Normocephalic. EYES: No scleral icterus. No injection or drainage. NECK: Supple, trachea midline. No JVD or lymphadenopathy. CARDIOVASCULAR: Regular rate and rhythm without murmurs, gallops, or rubs. RESPIRATORY: Breath sounds equal bilaterally. No accessory muscle use. GASTROINTESTINAL: Abdomen soft, non-tender, nondistended. MUSCULOSKELETAL: No cyanosis, or edema. BACK: Nontender without obvious deformity. No CVA tenderness. Vital Signs Vital Signs Date Time Temp Pulse Resp B/P Pulse Ox O2 Delivery O2 Flow Rate FiO2 05/16/17 13:01 98.7 74 18 148/75 95 Room Air Mental Status Examination Speech: Unremarkable Orientation: x3 Memory: Unremarkable Thought Process: Organized, Goal Directed Thought Content: Unremarkable Hallucination Type: None Attention and Concentration: Good Suicidal Ideation: Yes Previous Suicide Attempts: Yes Homicidal Ideation: No Previous Homicide Attempts: No Insight: Fair Judgment: Unrealistic Affect: Anxious, Sad Mood: Sad, Anxious Motor Activity: Normal gait Assessment & Plan Problem List: (1) Severe recurrent major depression without psychotic features ICD Code: F33.2 Assessment & Plan Estimated LOS: days 77-year-old female with multiple risk factors for depression and suicide. She has chronic recurrent major depressive episodes and is currently suicidal and unable to care for herself. This physician believes she is at high risk for self-harm due to her significant depressive symptoms, suicidal thinking and previous suicide attempts. She is therefore being admitted for evaluation and treatment. Patient has failed to antidepressants, including Cymbalta and Lexapro so these medicines were held. This physician did order a CBC and comprehensive metabolic panel to determine if any infectious process or metabolic process is causing or contributing to her depression. Likewise, we will obtain vitamin B-12 and vitamin D levels to ascertain if any of vitamin deficiency is causing or creating her depression. Furthermore, her thyroid stimulating hormone levels will be checked as hyper or hypothyroid can cause depression. She will receive an EKG to evaluate cardiac conduction and prevent problems resulting from psychotropic medication interference with cardiac conduction. Occupational therapy consult is being ordered to assess her functionality. Physical medicine consult is being ordered to evaluate her many non-psychotropic medicines for cardiac disease etc. As stated above, this physician spoke with the patient's nurse regarding her recent behavior and symptomatology. Case management will also be involved to obtain further collateral information and assist with disposition planning. Marcos Jaeger MD May 16, 2017 14:50
[2017-05-16 15:38] VITALS: BP 149/65; PULSE 73; RESP 18; O2SAT 96
[2017-05-16] MEDS: amLODIPine BESYLATE 5 MG TAB PO SCH (16:00)
[2017-05-16 17:35] VITALS: BP 143/70; PULSE 77; RESP 20; TEMP 97.9; O2SAT 89
[2017-05-16] MEDS ORDERED: RESP: ALBUTEROL 2.5 MG/IPRATROPIUM 0.5 MG NEB (PRN) NEB (17:45)
--- NOTE | 2017-05-16 17:56 | MB ---
cc: PAPITO HOFFMAN MD DATE OF CONSULTATION: 05/16/2017. REASON FOR CONSULTATION: Medical management. TRAVEL IN THE LAST THIRTY DAYS: None. HISTORY OF PRESENT ILLNESS: This is a pleasant 77-year-old white female who came into the hospital from an assisted living facility with suicidal thoughts and ideations. It was initially noted that the patient was a voluntary admission. She states that she has been depressed since she had some type of eye surgery, according to the record, because she loves to read and she has not been able to. It is also noted that the patient has had psychological depression and suicide attempts before. Her depression started as a young child. She is currently alert, oriented, flat affect, quiet but answers questions appropriately. She denies any chest pain. No shortness of breath. She is currently up with other patients sitting in the dietary room getting read to eat supper. She does state that she is hungry. No nausea. No vomiting. No diarrhea or constipation. The patient has noted some diarrhea in the recent past but does not give a lot of information concerning. PAST MEDICAL HISTORY: According to the record: 1. Anemia. 2. Arthritis. 3. Anxiety. 4. Depression. 5. Pericarditis. 6. History of CVA. 7. Major depression as a child. 8. Osteoporosis. 9. Recent right humerus fracture. 10. Psychological depression. 11. Seizures many years ago. 12. Hypertension. 13. COPD PAST SURGICAL HISTORY: 1. Appendectomy. ALLERGIES: 1. ARAVA. 2. ASPIRIN. 3. CIPRO. 4. PENICILLIN. 5. QUINOLONES. MEDICATIONS: 1. Prednisone eye drops. 2. Fluconazole. 3. Lexapro. 4. Donepezil. 5. Symbicort. 6. Spiriva. 7. Tums. 8. Simvastatin. 9. Prednisone. 10. Omeprazole. 11. Meclizine. 12. Pain management. 13. Acetaminophen. 14. Lisinopril. 15. Prozac. 16. Zyrtec. 17. Xanax. 18. Stool softeners. 19. Aspirin. SOCIAL HISTORY: The patient lives in an assisted living facility. She does smoke a half a pack to a pack a day, whatever she has that she can smoke that day. She does have a chronic cough. She denies any alcohol or any other illicit drug use. REVIEW OF SYSTEMS: Limited review of systems due to the patient's quiet and short answers. Except for her depression, systems are negative or unremarkable. PHYSICAL EXAMINATION: VITAL SIGNS: Temperature is 98.7, pulse 74, respirations 18, blood pressure 148/75, 02 sat 95% on room air. GENERAL: A small, borderline frail, elderly female looks to be her stated age sitting up in a chair. She is alert and appears oriented to where she is and very quiet affect. SKIN: [place], warm and dry. HEAD, EYES, EARS, NOSE, THROAT: Normocephalic and atraumatic. Pupils equal, round and reactive to light and accommodation. No mucous membrane discharge. [place] and moist. No scleral icterus. NECK: The neck is supple. CARDIOVASCULAR: S1 and S2. Regular rate and rhythm. No murmurs, rubs or gallops. LUNGS: Essentially clear anteriorly and posteriorly with no wheezes, rales or rhonchi. ABDOMEN: Soft, flat, nontender, nondistended. MUSCULOSKELETAL: She moves her extremities with purpose. She has no obvious deformities. She has no edema. Her extremities are warm. NEUROLOGIC: Flat affect but alert. Speech is clear and understandable but very soft. PSYCHIATRIC: Mood and affect are calm, quiet and appropriate. ASSESSMENT AND PLAN: 1. Severe major depression without psychotic features. 2. COPD with tobacco abuse. 3. Diarrhea, unspecified. 4. Hyponatremia. 5. Hypertension. PLAN: 1. Admit. 2. Her medications have been reconciled. 3. Drug screen was ordered on admission and it was positive for opiates and benzodiazepines, which she usually takes on an ongoing basis. Will reconcile her other medications, which will include blood pressure medications and her COPD medications. 4. The patient's activity will be out of bed ad mac. 5. Will monitor her for safety while being up. 6. DVT prophylaxis with SCDs. 7. PTI prophylaxis with Pepcid. 8. Will give the patient DuoNeb as needed. This was explained to her that if she gets short of breath and needs a treatment, all she has to do is ask for it. To my knowledge, she is FULL CODE, FULL AGGRESSIVE CARE. We will follow with her medical needs. Thank you very much for the consultation. Dictated by PATTI Mireles. MD CLYDE Hooper/EDWINA /5:27 PM /5:37 PM Above reviewed by myself, Dr Hoffman, today Discussed with emergency physician Discussed with mid level provider Thank you for this consultation We'll follow this patient along with you on an as-needed basis MTDD
[2017-05-16] MEDS: prednisoLONE ACETATE 1% OPHT SUSP 5 ML BTL RIGHT EYE SCH (19:59)
[2017-05-16] MEDS: BUDESONIDE-FORMOTEROL 160/4.5 MCG INHALER INH SCH (19:59)
[2017-05-16] MEDS: FAMOTIDINE 20 MG TAB PO SCH ×2 (20:00→20:10)
[2017-05-16] MEDS ORDERED: LORazepam 1 MG TAB PO ONE (23:30)
[2017-05-17 06:02] VITALS: BP 128/64; PULSE 72; RESP 16; TEMP 98.4; O2SAT 97
[2017-05-17 07:00] VITALS: BP 162/83; PULSE 76; RESP 18; TEMP 98.1; O2SAT 95
[2017-05-17 08:00] VITALS: BP 142/70; PULSE 79; RESP 16; TEMP 97.3; O2SAT 98
[2017-05-17] MEDS ORDERED: ASPIRIN 325 MG TAB PO SCH (09:00)
[2017-05-17] MEDS: BUDESONIDE-FORMOTEROL 160/4.5 MCG INHALER INH SCH ×2 (09:00→21:38)
[2017-05-17] MEDS: TIOTROPIUM BROMIDE 18 MCG INH INH SCH (09:00)
[2017-05-17] MEDS: prednisoLONE ACETATE 1% OPHT SUSP 5 ML BTL RIGHT EYE SCH ×3 (09:00→17:06)
--- NOTE | 2017-05-17 09:10 | RADRPT ---
EXAM DATE/TIME: 05/17/2017 07:54 [facility] COMPARISON: No previous studies available for comparison. INDICATIONS : Left distal forearm pain due to a fall. MEDICAL HISTORY : Hypertension. SURGICAL HISTORY : None. ENCOUNTER: Initial ACUITY: 1 day PAIN SCORE: 9/10 LOCATION: Left upper extremity FINDINGS: Multiple view examination of the left elbow demonstrates no soft tissue swelling, joint effusion, or fracture. The osseous structures are in normal alignment. Bony mineralization is normal. CONCLUSION: Unremarkable examination of the left elbow. Dexter Holm MD on May 17, 2017 at 9:08 Board Certified Radiologist. This report was verified electronically.
--- NOTE | 2017-05-17 09:10 | RADRPT ---
EXAM DATE/TIME: 05/17/2017 07:49 [facility] COMPARISON: No previous studies available for comparison. INDICATIONS : Left distal forearm pain due to a fall. MEDICAL HISTORY : Hypertension. SURGICAL HISTORY : None. ENCOUNTER: Initial ACUITY: 1 day PAIN SCORE: 9/10 LOCATION: Left upper extremity FINDINGS: There are mild arthritic changes in the wrist. There is slight ulna minus variance. There is no evide nce of fracture or dislocation. CONCLUSION: No acute bony injury Dexter Holm MD on May 17, 2017 at 9:00 Board Certified Radiologist. This report was verified electronically.
[2017-05-17] MEDS: DOCUSATE SODIUM 100 MG CAP PO SCH (09:36)
[2017-05-17] MEDS: LISINOPRIL 20 MG TAB PO SCH (09:36)
[2017-05-17] MEDS: PANTOPRAZOLE SOD 20 MG DELAYED RELEASE TAB PO SCH (09:36)
[2017-05-17] MEDS: PRAVASTATIN SOD 40 MG TAB PO SCH (09:36)
[2017-05-17] MEDS: predniSONE 5 MG TAB PO SCH (09:36)
[2017-05-17] MEDS: ACETAMINOPHEN/HYDROcodone 325 MG/7.5 MG TAB PO PRN ×2 (09:36→17:35)
[2017-05-17] MEDS: amLODIPine BESYLATE 5 MG TAB PO SCH (09:36)
[2017-05-17] MEDS: CETIRIZINE HCL 10 MG TAB PO SCH (09:36)
--- NOTE | 2017-05-17 09:55 | HHI.PYPN ---
Subjective Remarks Patient seen and examined. Chart reviewed. Case discussed with nursing staff. I was notified ~07:15 this morning that patient had fallen on left arm with focus of discomfort at left elbow and wrist. Patient was already on fall precautions at the time. I obtained stat x-rays of wrist and elbow, negative for fracture. On my evaluation this morning, patient now complains of left hand pain, and I do note ecchymosis and swelling along the dorsum of the left hand. I have ordered stat imaging of the hand, and this does reveal fracture, see findings and plan below. Psychitarically, patient reports much of the same information she provided to Dr. Jaeger. She reports feeling depressed since recent eye surgery. She is somewhat ambivalent about SI at this time. Denies AVH or psychotic symptoms otherwise. No HI. Denies side effects from current psychotropics, and reviewing her MAR from facility I do see that she is on Lexapro 20mg and Cymbalta 120mg daily. I also note a DNR order on the chart signed by Dr. Rosales. Besides hand pain, no other acute physical complaints. Review of Systems Except as stated in HPI: all other systems reviewed are Neg Objective Alert: Yes Viola: Person, Place, Date, Situation Mood: Anxious, Depressed Affect: Restricted Memory Intact: Comment (Intact on clinical exam) Hallucinations: Other (No AVH) Delusions: No Delusion Type: Other (No delusions) Suicidal: Ideation (Somewhat ambivalent re: SI) Homicidal: Ideation (No HI) Insight/Judgment Fair Remarks No motor abnormalities noted. Thought process linear. Grooming and hygiene fair. Speech within normal limits for rate, tone and volume. Labs Test 05/16/17 05/16/17 12:55 14:00 White Blood Count 9.0 TH/MM3 Red Blood Count 4.83 MIL/MM3 Hemoglobin 13.6 GM/DL Hematocrit 42.0 % Mean Corpuscular Volume 87.0 FL Mean Corpuscular Hemoglobin 28.2 PG Mean Corpuscular Hemoglobin 32.4 % Concent Red Cell Distribution Width 15.6 % Platelet Count 240 TH/MM3 Mean Platelet Volume 6.9 FL Neutrophils (%) (Auto) 85.8 % Lymphocytes (%) (Auto) 9.2 % Monocytes (%) (Auto) 4.2 % Eosinophils (%) (Auto) 0.4 % Basophils (%) (Auto) 0.4 % Neutrophils # (Auto) 7.7 TH/MM3 Lymphocytes # (Auto) 0.8 TH/MM3 Monocytes # (Auto) 0.4 TH/MM3 Eosinophils # (Auto) 0.0 TH/MM3 Basophils # (Auto) 0.0 TH/MM3 CBC Comment DIFF FINAL Differential Comment Sodium Level 130 MEQ/L Potassium Level 4.9 MEQ/L Chloride Level 96 MEQ/L Carbon Dioxide Level 25.9 MEQ/L Anion Gap 8 MEQ/L Blood Urea Nitrogen 11 MG/DL Creatinine 0.65 MG/DL Estimat Glomerular Filtration 89 ML/MIN Rate Random Glucose 105 MG/DL Calcium Level 9.2 MG/DL Total Bilirubin 0.5 MG/DL Aspartate Amino Transf 10 U/L (AST/SGOT) Alanine Aminotransferase 13 U/L (ALT/SGPT) Alkaline Phosphatase 71 U/L Total Protein 6.9 GM/DL Albumin 3.7 GM/DL Ethyl Alcohol Level 3 MG/DL Urine Color YELLOW Urine Turbidity CLEAR Urine pH 6.5 Urine Specific [place] 1.015 Urine Protein NEG mg/dL Urine Glucose (UA) NEG mg/dL Urine Ketones NEG mg/dL Urine Occult Blood NEG Urine Nitrite NEG Urine Bilirubin NEG Urine Urobilinogen 2.0 MG/DL Urine Leukocyte Esterase NEG Urine RBC 4 /hpf Urine WBC LESS THAN 1 /hpf Urine Squamous Epithelial <1 /hpf Cells Urine Mucus FEW /lpf Microscopic Urinalysis Comment CULT NOT INDICATED Urine Opiates Screen POS Urine Barbiturates Screen NEG Urine Amphetamines Screen NEG Urine Benzodiazepines Screen POS Urine Cocaine Screen NEG Urine Cannabinoids Screen NEG Labs reviewed. Last Impressions Wrist X-Ray 05/17/17 0000 Signed Impressions: Service Date/Time: Wednesday, May 17, 2017 07:49 - CONCLUSION: No acute bony injury Dexter Holm MD Hand X-Ray 05/17/17 0000 Signed Impressions: Service Date/Time: Wednesday, May 17, 2017 10:46 - CONCLUSION: Nondisplaced fractures of the proximal third fourth and fifth metacarpals with associated soft tissue swelling. Possible nondisplaced fracture of the navicular carpal bone. Jose A iLn MD Elbow X-Ray 05/17/17 0000 Signed Impressions: Service Date/Time: Wednesday, May 17, 2017 07:54 - CONCLUSION: Unremarkable examination of the left elbow. Dexter Holm MD Vitals/IOs Vital Signs Date Time Temp Pulse Resp B/P Pulse Ox O2 Delivery O2 Flow Rate FiO2 05/17/17 06:02 98.4 72 16 128/64 97 05/16/17 15:38 Room Air Assessment & Plan Problem List: (1) Severe recurrent major depression without psychotic features ICD Code: F33.2 (2) Fracture, metacarpal ICD Code: S62.309A Assessment & Plan Consult to hand surgery for metacarpal fracture. Splint left hand. 1:1 given fall risk. Fall precautions remain in place. Although somewhat unconventional , I will continue Lexapro/Cymbalta combination as ordered as patient reports that this has been a good regimen in the past, except that I will split the Cymbalta dose into two daily doses to try to lessen the quantity of psychotropics provided at any one time given the fall risk. I will augment current depression regimen with Abilify 2mg daily. I will lessen her dose of PRN benzodiazepine given the fall risk; I will not discontinue it entirely because she does remain fairly anxious. I will also not adjust opiate dosing because of acute pain issues, although this is something we might consider tapering in future. Hospitalist input noted and appreciated. Labs ordered by Dr. Jaeger presently pending, follow up. DNR order entered from chart. Continue to monitor on geropsychiatric unit. Continue other medications and care as ordered. Justification for Cont. Inpt. Monitoring for impairment and safety. Medication changes. High risk for decompensation in less restrictive environment. Discharge Planning Pending psychiatric stabilization. Request HC Surrog/Guard Advoc?: No Problem Qualifiers (1) Fracture, metacarpal: Qualified Code: S62.309A - Closed fracture of metacarpal bone, unspecified fracture morphology, unspecified metacarpal, unspecified portion of metacarpal, initial encounter Phill Olivo MD May 17, 2017 09:55
[2017-05-17] MEDS ORDERED: PNEUMOCOCCAL POLYVALENT INJ 25 MCG/0.5 ML SYR IM ONE (10:00)
--- NOTE | 2017-05-17 11:03 | RADRPT ---
EXAM DATE/TIME: 05/17/2017 10:46 [facility] COMPARISON: No previous studies available for comparison. INDICATIONS : Pain from fall. MEDICAL HISTORY : None. SURGICAL HISTORY : None. ENCOUNTER: Initial ACUITY: 1 day PAIN SCORE: 5/10 LOCATION: Left medioproximal hand. FINDINGS: Three view examination of the left hand demonstrates nondisplaced fractures involving the proximal th ird fourth and fifth metacarpals. There is no subluxation. Adjacent soft tissue swelling is noted. Her last fracture may be present across the navicular carpal bone. CONCLUSION: Nondisplaced fractures of the proximal third fourth and fifth metacarpals with associated soft tissue swelling. Possible nondisplaced fracture of the navicular carpal bone. Jose A Lin MD on May 17, 2017 at 11:00 Board Certified Radiologist. This report was verified electronically.
[2017-05-17] MEDS ORDERED: PILL SPLITTER OTHER PRN (12:45)
[2017-05-17] MEDS ORDERED: LORazepam 2 MG/ML VIAL IM PRN (14:15)
--- NOTE | 2017-05-17 14:50 | PD.CONS ---
History of Present Illness Service Hand Surgery Consult Requested By Phill Olivo MD Primary Care Physician Blane Edmonds M.D. Diagnoses: History of Present Illness This is a 77 year old female who has been admitted to the adult psychiatry unit for treatment of major depression. The patient states that she fell this morning. She is unsure what caused the fall. She thinks that she fell onto her outstretched left hand. Currently, the patient complains of pain in the left hand. The RN is present for discussion and evaluation. Review of Systems Except as stated in HPI: all other systems reviewed are Neg Past Family Social History Allergies: Coded Allergies: Arava (Verified Allergy, Severe, FACE SWELLING, 05/16/17) Aspirin (Verified Allergy, Severe, FACE SWELLING, 05/16/17) Cipro (Verified Allergy, Unknown, 05/16/17) Penicillin (Verified Allergy, Unknown, 05/16/17) Per [facility] [place] (Pharmacist) Quinolones (Verified Allergy, Unknown, 05/16/17) Per [facility] [place] (Pharmacist) Past Medical History Anemia, arthritis, anxiety, depression, pericarditis, CVA, major depression, osteoporosis, right humerus fracture, seizures, hypertension, COPD Past Surgical History Recent cataract surgery, appendectomy Active Ordered Medications Current Medications Medications (Trade) Dose Ordered Sig/Adrienne Route Start Time Stop Time Status Last Admin (Tylenol) 650 mg Q4H PRN PO 05/16/17 14:15 (Milk Of Magnesia Liq) 30 ml DAILY PRN PO 05/16/17 14:15 (Mag-Al Plus Susp Liq) 30 ml Q6H PRN PO 05/16/17 14:15 (Symbicort 160-4.5 Inh) 2 puff Q12HR INH 05/16/17 21:00 05/16/17 19:59 (ZyrTEC) 10 mg DAILY PO 05/17/17 09:00 05/17/17 09:36 (Colace) 100 mg DAILY PO 05/17/17 09:00 05/17/17 09:36 (Hana 7.5-325 Mg) 1 tab Q8HR PRN PO 05/16/17 14:15 05/17/17 09:36 (Prinivil) 20 mg DAILY PO 05/17/17 09:00 05/17/17 09:36 (Pred Forte 1% Opth Susp) 1 drop TID RIGHT EYE 05/16/17 18:00 05/17/17 13:00 (Deltasone) 5 mg DAILY PO 05/17/17 09:00 05/17/17 09:36 (Spiriva Inh) 18 mcg DAILY INH 05/17/17 09:00 (Protonix) 20 mg DAILY PO 05/17/17 09:00 05/17/17 09:36 (Pravachol) 40 mg DAILY PO 05/17/17 09:00 05/17/17 09:36 (Norvasc) 2.5 mg DAILY PO 05/16/17 16:00 05/17/17 09:36 (Cymbalta Dr) 60 mg BID PO 05/17/17 21:00 (Abilify) 2 mg DAILY PO 05/18/17 09:00 (Lexapro) 20 mg DAILY PO 05/18/17 09:00 (Ativan) 0.25 mg Q12H PRN PO 05/17/17 14:15 (Ativan Inj) 0.25 mg Q12H PRN IM 05/17/17 14:15 (Pill Splitter) 1 ea UNSCH PRN OTHER 05/17/17 12:45 Social History Lives in assisted living. Smokes 1/2 ppd. Denies alcohol or illicit drug abuse. Physical Exam Vital Signs Vital Signs Date Time Temp Pulse Resp B/P Pulse Ox O2 Delivery O2 Flow Rate FiO2 05/17/17 08:00 97.3 79 16 142/70 98 05/17/17 07:00 98.1 76 18 162/83 95 05/17/17 06:02 98.4 72 16 128/64 97 05/16/17 17:35 97.9 77 20 143/70 89 05/16/17 15:38 73 18 149/65 96 Room Air Physical Exam GENERAL: This is a well-nourished, well-developed patient, in no apparent distress. SKIN: No rashes, ecchymoses or lesions. HEAD: Atraumatic. Normocephalic. EYES: Pupils equal round and reactive. Extraocular motions intact. No scleral icterus. No injection or drainage. ENT: Nose without bleeding, purulent drainage. Airway patent. NECK: Trachea midline. MUSCULOSKELETAL: On exam of the left hand, there is swelling and ecchymosis to the dorsum of the hand. Very tender to any palpation. Patient is able to move fingers, range of motion limited due to pain. NEUROLOGICAL: Awake and alert. Normal speech. Result Diagram: 05/16/17 1255 05/16/17 1255 Imaging Last Impressions Wrist X-Ray 05/17/17 0000 Signed Impressions: Service Date/Time: Wednesday, May 17, 2017 07:49 - CONCLUSION: No acute bony injury Dexter Holm MD Hand X-Ray 05/17/17 0000 Signed Impressions: Service Date/Time: Wednesday, May 17, 2017 10:46 - CONCLUSION: Nondisplaced fractures of the proximal third fourth and fifth metacarpals with associated soft tissue swelling. Possible nondisplaced fracture of the navicular carpal bone. Jose A Lin MD Elbow X-Ray 05/17/17 0000 Signed Impressions: Service Date/Time: Wednesday, May 17, 2017 07:54 - CONCLUSION: Unremarkable examination of the left elbow. Dexter Holm MD Assessment and Plan Problem List: (1) Closed nondisplaced fracture of base of third metacarpal bone of left hand Status: Acute (2) Fracture of scaphoid of left wrist Status: Acute (3) Closed nondisplaced fracture of base of fifth metacarpal bone of left hand Status: Acute Assessment and Plan X-rays are reviewed. There are fractures to the bases of the third and fifth metacarpals of the left hand. There is also a possible fracture to the carpal scaphoid. The recommendation is for splint immobilization of the left hand. We may consider a cast once some of the swelling has subsided. Splinting is ordered. The patient indicated that she understood and indicated that she would comply with splinting. Also discussed with RN to monitor the tightness of the Wiley wrap on the splint and keep hand elevated. We discussed the possible addition of ibuprofen to help with pain control, the RN will discuss with attending, who is already prescribing lortab. Discussed Condition With RN Dr. Wolf Problem Qualifiers (1) Closed nondisplaced fracture of base of third metacarpal bone of left hand: Qualified Code: S62.343A - Closed nondisplaced fracture of base of third metacarpal bone of left hand, initial encounter (2) Fracture of scaphoid of left wrist: Qualified Code: S62.025A - Closed nondisplaced fracture of middle third of scaphoid bone of left wrist, initial encounter (3) Closed nondisplaced fracture of base of fifth metacarpal bone of left hand: Qualified Code: S62.347A - Closed nondisplaced fracture of base of fifth metacarpal bone of left hand, initial encounter Mere Ramirez May 17, 2017 14:50
--- NOTE | 2017-05-17 15:12 | EKG ---
Date Performed: 05/16/2017 Time Performed: 15:32:18 PTAGE: 77 years EKG: Sinus rhythm Diffuse nonspecific ST-T wave change ABNORMAL ECG NO PREVIOUS TRACING DOCTOR: Marcos Zuniga Interpretating Date/Time 05/17/2017 15:12:22
[2017-05-17] MEDS: LORazepam 0.5 MG TAB PO PRN (15:57)
[2017-05-17] MEDS: IBUPROFEN 600 MG TAB PO PRN (16:07)
[2017-05-17 16:22] VITALS: BP 139/71; PULSE 83; RESP 18; TEMP 97.8; O2SAT 95
[2017-05-17] MEDS: DULoxetine HCl DR 60 MG CAP PO SCH (21:38)
[2017-05-18] MEDS: ACETAMINOPHEN/HYDROcodone 325 MG/7.5 MG TAB PO PRN ×3 (02:11→20:17)
[2017-05-18 06:00] VITALS: BP 147/79; PULSE 81; RESP 17; TEMP 97.9; O2SAT 92
[2017-05-18] MEDS: IBUPROFEN 600 MG TAB PO PRN ×2 (06:17→15:30)
[2017-05-18] MEDS: TIOTROPIUM BROMIDE 18 MCG INH INH SCH (09:00)
[2017-05-18] MEDS: prednisoLONE ACETATE 1% OPHT SUSP 5 ML BTL RIGHT EYE SCH ×3 (09:00→18:00)
[2017-05-18] MEDS: BUDESONIDE-FORMOTEROL 160/4.5 MCG INHALER INH SCH ×2 (09:24→20:16)
[2017-05-18 09:26] LABS: AUTOMATED NEUTROPHIL # 4.8 TH/MM3 (1.8-7.7); BASOPHIL # 0.1 TH/MM3 (0-0.2); BASOPHIL % 0.7 % (0.0-2.0); EOSINOPHIL # 0.1 TH/MM3 (0-0.4); EOSINOPHIL % 1.4 % (0.0-4.0); HEMATOCRIT 43.9 % (35.0-46.0); HEMO FLAGS DIFF FINAL; LYMPH % 26.8 % (9.0-44.0); MEAN CELL VOLUME 87.2 FL (80.0-100.0); MEAN CORPUSCULAR HEMOGLOBIN 28.1 PG (27.0-34.0); MEAN CORPUSCULAR HGB CONC 32.2 % (32.0-36.0); MONO % 5.9 % (0.0-8.0); NEUT % 65.2 % (16.0-70.0); PLATELET COUNT 258 TH/MM3 (150-450); RED BLOOD COUNT 5.04 MIL/MM3 (4.00-5.30); RED CELL DISTRIBUTION WIDTH 15.7 % (11.6-17.2); WHITE BLOOD COUNT 7.4 TH/MM3 (4.0-11.0)
[2017-05-18] MEDS: PRAVASTATIN SOD 40 MG TAB PO SCH (09:27)
[2017-05-18] MEDS: DULoxetine HCl DR 60 MG CAP PO SCH ×2 (09:27→20:16)
[2017-05-18] MEDS: PANTOPRAZOLE SOD 20 MG DELAYED RELEASE TAB PO SCH (09:27)
[2017-05-18] MEDS: ARIPiprazole 2 MG TAB PO SCH (09:27)
[2017-05-18] MEDS: ESCITALOPRAM OXALATE 20 MG TAB PO SCH (09:27)
[2017-05-18] MEDS: DOCUSATE SODIUM 100 MG CAP PO SCH (09:28)
[2017-05-18] MEDS: predniSONE 5 MG TAB PO SCH (09:28)
[2017-05-18] MEDS: amLODIPine BESYLATE 5 MG TAB PO SCH (09:28)
[2017-05-18] MEDS: LISINOPRIL 20 MG TAB PO SCH (09:28)
[2017-05-18] MEDS: CETIRIZINE HCL 10 MG TAB PO SCH (09:28)
[2017-05-18 09:43] LABS: ANION GAP 10 MEQ/L (5-15); AST (GOT) 17 U/L (15-37); BICARBONATE 27.1 MEQ/L (21.0-32.0); BLOOD UREA NITROGEN 8 MG/DL (7-18); CHLORIDE 93 MEQ/L (98-107); GLOMERULAR FILTRATION RATE 84 ML/MIN (>89); POTASSIUM 3.8 MEQ/L (3.5-5.1); SODIUM (NA) 130 MEQ/L (136-145)
[2017-05-18 09:46] LABS: ALT (GPT) 14 U/L (10-53)
[2017-05-18 10:20] LABS: ALKALINE PHOSPHATASE 78 U/L (45-117); HDL CHOLESTEROL 110.4 MG/DL (40.0-60.0); LDL CHOLESTEROL 54 MG/DL (0-99); TOTAL BILIRUBIN ADULT 0.6 MG/DL (0.2-1.0)
--- NOTE | 2017-05-18 17:21 | EKG ---
Date Performed: 05/17/2017 Time Performed: 13:11:06 PTAGE: 77 years EKG: Sinus rhythm ST DEVIATION AND MODERATE T-WAVE ABNORMALITY, CONSIDER ANTEROLATERAL ISCHEMIA ABNORMAL ECG Compared to prior tracing no significant change PREVIOUS TRACING : 05/16/2017 15.32 DOCTOR: Madhu Mesa Interpretating Date/Time 05/18/2017 17:18:38
--- NOTE | 2017-05-18 20:09 | HHI.PYPN ---
Subjective Remarks Pt seen and discussed with staff. Pt reports that she remains depressed and anxious. She denies SI/HI today. She has been cooperative and compliant with treatment. No agitation. Pain from fracture is well controlled Objective Alert: Yes Secretary: Person, Place, Date, Situation Mood: Anxious, Depressed Affect: Restricted Memory Intact: Comment (intact) Hallucinations: Other (No AVH) Delusions: No Delusion Type: Other (No delusions) Suicidal: Ideation (denies) Homicidal: Ideation (denies) Insight/Judgment limited Labs Test 05/18/17 05/18/17 08:00 08:20 Sodium Level 130 MEQ/L Potassium Level 3.8 MEQ/L Chloride Level 93 MEQ/L Carbon Dioxide Level 27.1 MEQ/L Anion Gap 10 MEQ/L Blood Urea Nitrogen 8 MG/DL Creatinine 0.68 MG/DL Estimat Glomerular Filtration 84 ML/MIN Rate Random Glucose 116 MG/DL Calcium Level 9.1 MG/DL Total Bilirubin 0.6 MG/DL Aspartate Amino Transf 17 U/L (AST/SGOT) Alanine Aminotransferase 14 U/L (ALT/SGPT) Alkaline Phosphatase 78 U/L Total Protein 7.2 GM/DL Albumin 3.9 GM/DL Triglycerides Level 233 MG/DL Cholesterol Level 211 MG/DL LDL Cholesterol 54 MG/DL HDL Cholesterol 110.4 MG/DL Cholesterol/HDL Ratio 1.91 RATIO Vitamin B12 Level 208 PG/ML 25-Hydroxy Vitamin D Total 14.3 ng/ML Thyroid Stimulating Hormone 2.410 uIU/ML 3rd Gen White Blood Count 7.4 TH/MM3 Red Blood Count 5.04 MIL/MM3 Hemoglobin 14.1 GM/DL Hematocrit 43.9 % Mean Corpuscular Volume 87.2 FL Mean Corpuscular Hemoglobin 28.1 PG Mean Corpuscular Hemoglobin 32.2 % Concent Red Cell Distribution Width 15.7 % Platelet Count 258 TH/MM3 Mean Platelet Volume 7.2 FL Neutrophils (%) (Auto) 65.2 % Lymphocytes (%) (Auto) 26.8 % Monocytes (%) (Auto) 5.9 % Eosinophils (%) (Auto) 1.4 % Basophils (%) (Auto) 0.7 % Neutrophils # (Auto) 4.8 TH/MM3 Lymphocytes # (Auto) 2.0 TH/MM3 Monocytes # (Auto) 0.4 TH/MM3 Eosinophils # (Auto) 0.1 TH/MM3 Basophils # (Auto) 0.1 TH/MM3 CBC Comment DIFF FINAL Differential Comment Vitals/IOs Vital Signs Date Time Temp Pulse Resp B/P Pulse Ox O2 Delivery O2 Flow Rate FiO2 05/18/17 06:00 97.9 81 17 147/79 92 05/16/17 15:38 Room Air Intake and Output 05/17/17 05/17/17 05/18/17 08:00 16:00 00:00 Intake Total 240 ml 720 ml 480 ml Balance 240 ml 720 ml 480 ml Assessment & Plan Problem List: (1) Severe recurrent major depression without psychotic features ICD Code: F33.2 (2) Fracture, metacarpal ICD Code: S62.309A Assessment & Plan Continue current tx plan. Estimated LOS: days Justification for Cont. Inpt. monitoring for safety Request HC Surrog/Guard Advoc?: No Problem Qualifiers (1) Fracture, metacarpal: Qualified Code: S62.309A - Closed fracture of metacarpal bone, unspecified fracture morphology, unspecified metacarpal, unspecified portion of metacarpal, initial encounter Karey Reynolds MD May 18, 2017 20:09
[2017-05-18] MEDS: LORazepam 0.5 MG TAB PO PRN (20:16)
[2017-05-19] MEDS: IBUPROFEN 600 MG TAB PO PRN ×3 (00:25→20:52)
[2017-05-19 06:00] VITALS: BP 137/67; PULSE 71; RESP 16; TEMP 97.4; O2SAT 95
[2017-05-19] MEDS: CETIRIZINE HCL 10 MG TAB PO SCH (08:34)
[2017-05-19] MEDS: PRAVASTATIN SOD 40 MG TAB PO SCH (08:35)
[2017-05-19] MEDS: ACETAMINOPHEN/HYDROcodone 325 MG/7.5 MG TAB PO PRN ×2 (08:35→15:40)
[2017-05-19] MEDS: ARIPiprazole 2 MG TAB PO SCH (08:35)
[2017-05-19] MEDS: predniSONE 5 MG TAB PO SCH (08:35)
[2017-05-19] MEDS: amLODIPine BESYLATE 5 MG TAB PO SCH (08:36)
[2017-05-19] MEDS: BUDESONIDE-FORMOTEROL 160/4.5 MCG INHALER INH SCH ×2 (08:36→20:53)
[2017-05-19] MEDS: DULoxetine HCl DR 60 MG CAP PO SCH ×2 (08:36→20:50)
[2017-05-19] MEDS: ESCITALOPRAM OXALATE 20 MG TAB PO SCH (08:36)
[2017-05-19] MEDS: PANTOPRAZOLE SOD 20 MG DELAYED RELEASE TAB PO SCH (08:36)
[2017-05-19] MEDS: DOCUSATE SODIUM 100 MG CAP PO SCH (08:36)
[2017-05-19] MEDS: prednisoLONE ACETATE 1% OPHT SUSP 5 ML BTL RIGHT EYE SCH ×3 (08:36→18:00)
[2017-05-19] MEDS: LISINOPRIL 20 MG TAB PO SCH (08:36)
[2017-05-19] MEDS: TIOTROPIUM BROMIDE 18 MCG INH INH SCH (08:37)
[2017-05-19 09:50] LABS: HEMOGLOBIN A1a 1.2 %; HEMOGLOBIN Ao 84.4 %; HEMOGLOBIN LA1C 2.2 %; HEMOGLOBIN P3 3.9 %
--- NOTE | 2017-05-19 16:58 | HHI.PYPN ---
Subjective Remarks Pt seen and discussed with staff. She reports that she is feeling less depressed today and has not had SI/HI. She is tolerating medications without side effects. No SI/HI. Objective Alert: Yes Kelly: Person, Place, Date, Situation Mood: Depressed Affect: Restricted Memory Intact: Comment (intact) Hallucinations: Other (No AVH) Delusions: No Delusion Type: Other (No delusions) Suicidal: Ideation (denies) Homicidal: Ideation (denies) Insight/Judgment poor Vitals/IOs Vital Signs Date Time Temp Pulse Resp B/P Pulse Ox O2 Delivery O2 Flow Rate FiO2 05/19/17 09:43 18 05/19/17 06:00 97.4 71 137/67 95 05/16/17 15:38 Room Air Intake and Output 05/18/17 05/18/17 05/19/17 08:00 16:00 00:00 Intake Total 1200 ml Balance 1200 ml Assessment & Plan Problem List: (1) Severe recurrent major depression without psychotic features ICD Code: F33.2 Assessment & Plan Continue current tx plan. Estimated LOS: days Justification for Cont. Inpt. risk of decompensation Request HC Surrog/Guard Advoc?: No Karey Reynolds MD May 19, 2017 16:58 Karey Reynolds MD May 19, 2017 16:58
[2017-05-19 18:51] VITALS: BP 117/58; PULSE 77; RESP 16; TEMP 98.1; O2SAT 95
[2017-05-20 05:44] VITALS: BP 144/73; PULSE 67; RESP 16; TEMP 96.4
[2017-05-20] MEDS: BUDESONIDE-FORMOTEROL 160/4.5 MCG INHALER INH SCH (08:50)
[2017-05-20] MEDS: DOCUSATE SODIUM 100 MG CAP PO SCH (08:51)
[2017-05-20] MEDS: ESCITALOPRAM OXALATE 20 MG TAB PO SCH (08:51)
[2017-05-20] MEDS: amLODIPine BESYLATE 5 MG TAB PO SCH (08:51)
[2017-05-20] MEDS: PANTOPRAZOLE SOD 20 MG DELAYED RELEASE TAB PO SCH (08:51)
[2017-05-20] MEDS: DULoxetine HCl DR 60 MG CAP PO SCH (08:51)
[2017-05-20] MEDS: LISINOPRIL 20 MG TAB PO SCH (08:51)
[2017-05-20] MEDS: PRAVASTATIN SOD 40 MG TAB PO SCH (08:51)
[2017-05-20] MEDS: ARIPiprazole 2 MG TAB PO SCH (08:52)
[2017-05-20] MEDS: CETIRIZINE HCL 10 MG TAB PO SCH (08:52)
[2017-05-20] MEDS: predniSONE 5 MG TAB PO SCH (08:52)
[2017-05-20] MEDS: TIOTROPIUM BROMIDE 18 MCG INH INH SCH (08:52)
[2017-05-20] MEDS: prednisoLONE ACETATE 1% OPHT SUSP 5 ML BTL RIGHT EYE SCH ×2 (09:00→12:39)
[2017-05-20] MEDS: ACETAMINOPHEN/HYDROcodone 325 MG/7.5 MG TAB PO PRN (09:50)
[2017-05-20] MEDS ORDERED: ESCI20TA PO (11:53)
[2017-05-20] MEDS ORDERED: SPIRCAP INH (11:53)
[2017-05-20] MEDS ORDERED: PRAV40TA PO (11:53)
[2017-05-20] MEDS ORDERED: PANT20 PO (11:53)
[2017-05-20] MEDS ORDERED: CETI10 PO (11:53)
[2017-05-20] MEDS ORDERED: SYMB160A INH (11:53)
[2017-05-20] MEDS ORDERED: ABIL2TAB2 PO (11:53)
[2017-05-20] MEDS ORDERED: DULO1CAP3 PO (11:53)
[2017-05-20] MEDS ORDERED: LISI-515 PO (11:53)
[2017-05-20] MEDS ORDERED: DOCU1CAP39 PO (11:53)
[2017-05-20] MEDS ORDERED: HYDR-3580 PO (11:53)
[2017-05-20] MEDS ORDERED: PRED5TAB PO (11:53)
[2017-05-20] MEDS ORDERED: PRED1SUS6 RIGHT EYE (11:53)
[2017-05-20] MEDS ORDERED: AMLO5 PO (11:53)
--- NOTE | 2017-05-20 12:08 | HHI.DS ---
Psychiatry Discharge Summary Inpatient Psychiatric care?: Yes Advance Directive: No Reason Not Provided: Due to Patient Condition Mental Health AdvanceDirective: No Health Care Proxy: No Admission Admission Date May 16, 2017 at 14:10 Admission Diagnosis: (1) Closed nondisplaced fracture of base of fifth metacarpal bone of left hand ICD Code: S62.347A (2) Severe recurrent major depression without psychotic features ICD Code: F33.2 Brief History 77-year-old female Fu acted from assisted living facility for suicidal ideation. Patient interviewed and this physician spoke to the patient's nurse regarding her presentation. Records were reviewed as well. She has a long history of depressive episodes stemming from childhood. At this time she is markedly depressed with frequent if not constant thoughts of and suicide. She also demonstrates depressed mood, anhedonia, feelings of hopelessness and helplessness, decreased energy, impaired concentration, insomnia, anxiety, and low self-esteem. The only recent stressor she can explain to this physician is the eye surgery she had recently, which impairs her ability to read. Apparently she enjoyed reading and being unable to do so is more depressing to her. Finally, there is some possibility the patient has either early-onset dementia or pseudodementia. She is telling this physician that she has not been sad since yesterday but the patient's nurse checked the [facility] reports and finds that hard to believe. The patient does not use alcohol or drugs. She does have Physical medical problems. Tobacco Use In Past 30 Days: 5 or More Cigarettes/Day Alcohol Use: Never Hospital Course Patient seen today with counselor [place]. Covering for Dr. stephenson, patient alert oriented calm cooperative white female pleasant with good eye contact, now denying any suicidal homicidal ideation intent or plan. Denies any voices or visions. States she feels safe returning to [facility]. She wishes to return there today he was able contracted to no harm. And able to follow up with mental health services through that facility. She is willing to be compliant with her medications also. Thus at this time I feel patient has met maximum benefit of this hospitalization. Will discharge patient today with Rx 1 month to follow-up with services through [facility] Results Blood Pressure 144 / 73 Vital Signs Date Time Temp Pulse Resp B/P Pulse Ox O2 Delivery O2 Flow Rate FiO2 05/20/17 05:44 96.4 67 16 144/73 05/19/17 18:51 95 05/16/17 15:38 Room Air Laboratory Tests Test 05/18/17 08:00 Sodium Level 130 MEQ/L (136-145) Chloride Level 93 MEQ/L (98-107) Random Glucose 116 MG/DL (74-106) Estimat Glomerular Filtration 84 ML/MIN (>89) Rate Triglycerides Level 233 MG/DL (42-150) Cholesterol Level 211 MG/DL (120-200) HDL Cholesterol 110.4 MG/DL (40.0-60.0) 25-Hydroxy Vitamin D Total 14.3 ng/ML (30-100) Laboratory Results Test 05/18/17 08:00 Hemoglobin A1c 5.8 % (4.3-6.0) Triglycerides Level 233 MG/DL (42-150) Cholesterol Level 211 MG/DL (120-200) LDL Cholesterol 54 MG/DL (0-99) HDL Cholesterol 110.4 MG/DL (40.0-60.0) Summary of Procedures None done Imaging Last Impressions Wrist X-Ray 05/17/17 0000 Signed Impressions: Service Date/Time: Wednesday, May 17, 2017 07:49 - CONCLUSION: No acute bony injury Dexter Holm MD Hand X-Ray 05/17/17 0000 Signed Impressions: Service Date/Time: Wednesday, May 17, 2017 10:46 - CONCLUSION: Nondisplaced fractures of the proximal third fourth and fifth metacarpals with associated soft tissue swelling. Possible nondisplaced fracture of the navicular carpal bone. Jose A Lin MD Elbow X-Ray 05/17/17 0000 Signed Impressions: Service Date/Time: Wednesday, May 17, 2017 07:54 - CONCLUSION: Unremarkable examination of the left elbow. Dexter Holm MD Pending results at discharge: No Medications # of Antipsychotic meds at D/C: 1 Approp Antipsych med options 1 - Minimum of three failed multiple trials of monotherapy. 2 - Documented plan to taper to monotherapy due to previous use of multiple meds OR cross-taper in progress at D/C. 3 - Documentation of augmentation of Clozapine. 4 - Justification other than those listed in allowable values 1-3, document here : Discharge Discharge Date: May 20, 2017 Discharge Diagnosis: (1) Closed nondisplaced fracture of base of third metacarpal bone of left hand Diagnosis: Secondary ICD Code: S62.343A (2) Severe recurrent major depression without psychotic features Diagnosis: Principal ICD Code: F33.2 Mental Status Exam at Disch Alert oriented elderly white female sitting calmly in a [place] chair wearing a brace over her left forearm wrist and hand. She is otherwise normal active, mood is euthymic with slight decreased range intensity of her affect. Speech rate and rhythm within normal limits , no formal thought disorders. No auditory or visual hallucinations. No delusions. Insight and judgment is fair cognition appears grossly intact Pt Condition on Discharge: Stable Discharge Disposition: Discharge to SNF Discharge Instructions Diet Instructions: Heart Healthy Diet Activities you can perform: Regular-No Restrictions Scheduled Appointment: mental health services through [facility] follow-up orthopedic services [facility] for fractured left hand Discharge Time > 30 minutes Discharge/Advance Care Plan Health Problems: (1) Severe recurrent major depression without psychotic features Goals to promote your health * To prevent worsening of your condition and complications * To maintain your health at the optimal level Directions to meet your goals Take your medications as prescribed Follow your dietary instruction Follow activity as directed Keep your appointments as scheduled Take your immunizations and boosters as scheduled If your symptoms worsen call your PCP, if no PCP go to Urgent Care Center or Emergency Room For 29/04 questions related to your inpatient stay or results of tests pending at discharge, please contact Dr. Dexter Alex at Smoking is Dangerous to Your Health. Avoid second hand smoking Problem Qualifiers (1) Closed nondisplaced fracture of base of fifth metacarpal bone of left hand: Qualified Code: S62.347A - Closed nondisplaced fracture of base of fifth metacarpal bone of left hand, initial encounter (2) Closed nondisplaced fracture of base of third metacarpal bone of left hand: Qualified Code: S62.343A - Closed nondisplaced fracture of base of third metacarpal bone of left hand, initial encounter Dexter Alex MD May 20, 2017 12:08
[2017-05-20] MEDS: IBUPROFEN 600 MG TAB PO PRN (12:09)
--- NOTE | 2017-05-20 13:09 | PD.TTN ---
Present for Treatment Team Treatment Team Staff: Provider (Dr Alex), Nurse (Vera), Psych Therapist ( America ), Occupational Therapist (Laura) Patient Problems 1. Discharge planning 2. Medication compliance 3. Knowledge deficit 4. Lack of coping skills Progress Toward Goals Provider Input: no issues then discharge Nurse Input: no issues over the weekend Psych Therapist Input: s.w family their concern was just if she had found access to get more bills or more money to drink but BETO stated they felt it was med change once stable can return possibly today Occupational Therapist Input: came to some groups [facility] Singh [employer] May 20, 2017 13:09
== END 2017-05-20 15:10 | DRG 885 ==
LOC: NEPD 11:56 → NEDA 14:10 → H260 16:25 → H250 19:40
PROVIDERS: ADMIT Psychiatry & Neurology Psychiatry; ATTEND Psychiatry & Neurology Psychiatry
DX: F33.2 Major depressive disorder, recurrent severe without psychotic features (principal); E87.1 Hypo-osmolality and hyponatremia; R45.851 Suicidal ideations; J44.9 Chronic obstructive pulmonary disease, unspecified; I10 Essential (primary) hypertension; S62.002A Unspecified fracture of navicular [scaphoid] bone of left wrist, initial encounter for closed fracture; D64.9 Anemia, unspecified; E03.9 Hypothyroidism, unspecified; F41.9 Anxiety disorder, unspecified; G47.00 Insomnia, unspecified; K21.9 Gastro-esophageal reflux disease without esophagitis; M81.0 Age-related osteoporosis without current pathological fracture; S62.317A Displaced fracture of base of fifth metacarpal bone, left hand, initial encounter for closed fracture; S62.313A Displaced fracture of base of third metacarpal bone, left hand, initial encounter for closed fracture; W19.XXXA Unspecified fall, initial encounter; Y92.230 Patient room in hospital as the place of occurrence of the external cause; F17.210 Nicotine dependence, cigarettes, uncomplicated; Z66 Do not resuscitate; Z86.73 Personal history of transient ischemic attack (TIA), and cerebral infarction without residual deficits; Z91.5 Personal history of self-harm; Z91.81 History of falling; M19.90 Unspecified osteoarthritis, unspecified site
CPT/HCPCS: 73080; 73110; 73130; 80053; 80061; 80307; 81001; 82306; 82607; 83036; 84443; 85025; 93005; J7030; J7512